=== PATIENT | female | born 2000 | race Caucasian/White ===

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

== ENCOUNTER 2020-03-09 14:46 | Emergency (ER) | payer BC, OTHER ==
[2020-03-09 16:08] LABS: Basophils # (A) 0.1 k/uL (0-0.2); Basophils % (A) 1 %; Eosinophils # (A) 0.3 k/uL (0-0.7); Eosinophils % (A) 7 %; HCT 47.8 % (34.0-46.0); HGB 16.5 gm/dL (11.4-16.0); Lymphocytes % (A) 24 %; MCH 31.7 pg (25.0-35.0); MCHC 34.5 g/dL (31.0-37.0); MCV 91.7 fL (80.0-100.0); Mean Platelet Volume 6.9; Monocytes # (A) 0.3 k/uL (0-1.0); Monocytes % (A) 6 %; Neutrophils # (A) 2.6 k/uL (1.3-7.7); Neutrophils % (A) 60 %; Platelet Count 247 k/uL (150-450); RBC 5.21 m/uL (3.80-5.40); RDW 11.9 % (11.5-15.5); WBC 4.3 k/uL (3.8-10.6)
[2020-03-09 16:13] LABS: ALT 9 U/L (4-34); AST 18 U/L (14-36); African American GFR (CKD) >90 (>60 ml/min/1.73 sqM); Albumin 4.5 g/dL (3.5-5.0); Alkaline Phosphatase 44 U/L (38-126); Anion Gap 6 mmol/L; Blood Urea Nitrogen 9 mg/dL (7-17); Calcium 9.6 mg/dL (8.4-10.2); Carbon Dioxide 28 mmol/L (22-30); Chloride 105 mmol/L (98-107); Glucose 85 mg/dL (74-99); Non-African American GFR(CKD) >90 (>60 ml/min/1.73 sqM); Potassium 4.1 mmol/L (3.5-5.1); Sodium 139 mmol/L (137-145); Total Bilirubin 0.8 mg/dL (0.2-1.3); Total Protein 7.3 g/dL (6.3-8.2)
--- NOTE | 2020-03-09 16:24 | XR ---
EXAMINATION TYPE: XR chest 2V DATE OF EXAM: 03/09/2020 CLINICAL HISTORY: chest tightness. TECHNIQUE: Frontal and lateral view of the chest. COMPARISON: 03/14/2017 chest radiograph FINDINGS: Left superior mediastinal surgical clips redemonstrated. Redemonstrated right aortic arch. The cardiomediastinal silhouette is within normal limits for size. Pulmonary vasculature is normal. There is no focal air space opacity, pleural effusion, or pneumothorax seen. The osseous structures a re intact. IMPRESSION: No acute cardiopulmonary process.
[2020-03-09 16:26] LABS: Appearance,Urine Cloudy (Clear); Bacteria,Urine Rare /hpf; Bilirubin,Urine Negative (Negative); Blood,Urine Negative (Negative); Color,Urine Yellow; Glucose,Urine (UA) Negative (Negative); Ketones,Urine 1+ (Negative); Leukocyte Esterase,Urine Negative (Negative); Mucus,Urine Many /hpf; Nitrite,Urine Negative (Negative); Protein,Urine Trace (Negative); RBC,Urine 2 /hpf (0-5); Specific Gravity,Urine 1.033 (1.001-1.035); Squamous Epithelial Cell,Urine 23 /hpf (0-4); Urobilinogen,Urine <2.0 mg/dL (<2.0); WBC,Urine 2 /hpf (0-5)
[2020-03-09 17:13] VITALS: RESP 16
--- NOTE | 2020-03-09 17:43 | ED ---
General Adult HPI - General Chief complaint: Chest Pain Stated complaint: chest pain Time Seen by Provider: 03/09/20 15:09 Source: patient, RN notes reviewed, old records reviewed Mode of arrival: wheelchair Limitations: no limitations - History of Present Illness Initial comments: 19-year-old female patient ED for evaluation. Patient has history of vascular ring surgery when she was 1.5 years old. Reports that for the last week or so she's been having left parasternal chest tightness and some waxing and waning sharp chest pain. Denies any difficulty breathing. Denies any other acute complaints. Systemic: Pt denies fatigue, fever/chills, rash. Pt denies weakness, night sweats, weight loss. Neuro: Pt denies headache, visual disturbances, syncope or pre-syncope. HEENT: Pt denies ocular discharge or irritation, otalgia, rhinorrhea, pharyngit is or notable lymphadenopathy. Cardiopulmonary: Pt denies SOB, heart palpitations, dyspnea on exertion. Abdominal/GI: Pt denies abdominal pain, n/v/d. : Pt denies dysuria, burning w/ urination, frequency/urgency. Denies new onset urinary or bowel incontinence. MSK: Pt denies myalgia, loss of strength or function in extremities. Neuro: Pt denies new onset weakness, paresthesias. - Related Data Home Medications Medication Instructions Recorded Confirmed Montelukast [Singulair] 10 mg PO DAILY 05/19/16 03/09/20 Amoxicillin 500 mg PO BID 03/09/20 03/09/20 Loratadine [Claritin] 10 mg PO DAILY 03/09/20 03/09/20 hydrOXYzine HCL [Atarax] 10 mg PO TID PRN 03/09/20 03/09/20 Allergies Allergy/AdvReac Type Severity Reaction Status Date / Time Egg Derived Allergy Nausea & Verified 03/09/20 19:12 Vomiting peanut Allergy Anaphylaxis Verified 03/09/20 19:12 shellfish derived [Shellfish] Allergy Unknown Verified 03/09/20 19:12 tree nut Allergy Anaphylaxis Verified 03/09/20 19:12 Review of Systems ROS Statement: Those systems with pertinent positive or pertinent negative responses have been documented in the HPI. ROS Other: All systems not noted in ROS Statement are negative. 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 HEENT: NC/AT, trachea midline, neck supple, no lymphadenopathy. Posterior pharynx non erythematous, without exudates. External ears appear normal, without discharge. Mucous membranes moist. Eyes PERRLA, EOM intact. There is no scleral icterus. No pallor noted. Cardiopulmonary: RRR, no murmurs, rubs or gallops, no JVD noted. Lungs CTAB in anterior and posterior olsen. No peripheral edema. Abdominal exam: Abdomen soft and non-distended. Abdomen non-tender to palpation in all 4 quadrants. Bowel sounds active in LLQ. No hepatosplenomegaly. No ecchymosis Neuro: CN II-XII grossly intact. No nuchal rigidity. No raccon eyes, no carr sign, no hemotympanum. No cervical spinal tenderness. MSK: No posterior calf tenderness bilaterally, homans sign negative bilaterally. Posterior tibialis and radial pulse +2 bilaterally. Sensation intact in upper and lower extremities. Full active ROM in upper and lower extremities, 5/5 stregnth. Limitations: no limitations Course Vital Signs 03/09/20 03/09/20 03/09/20 14:47 17:12 18:40 Temperature 97.3 F L 98.0 F Pulse Rate 129 H 81 89 Respiratory 18 16 16 Rate Blood Pressure 105/71 115/73 110/72 O2 Sat by Pulse 100 100 99 Oximetry Medical Decision Making - Medical Decision Making 19-year-old female patient ED for evaluation of chest pain. Patient was reportedly evaluated by urgent care as well as her primary care provider for this. Primary care provider check thyroid tests which were reportedly normal. Abdomen is ago she was here are non-impressive. EKG negative for acute ischemia. Chest x-ray negative for acute pathology. D-dimer is undetectable. Troponin is negative. Due to patient's history of vascular surgery CT angio graphy was obtained did not display any acute pathology. Patient in no acute discomfort. Believes her symptoms are anxiety related. Patient states discharge for follow-up with primary care provider outpatient basis and will return to ER if any worsening symptoms. Case discussed with Dr. Parham. - Lab Data Result diagrams: 03/09/20 15:30 03/09/20 15:30 Lab Results 03/09/20 03/09/20 03/09/20 Range/Units 15:30 15:30 15:30 WBC 4.3 (3.8-10.6) k/uL RBC 5.21 (3.80-5.40) m/uL Hgb 16.5 H (11.4-16.0) gm/dL Hct 47.8 H (34.0-46.0) % MCV 91.7 (80.0-100.0) fL MCH 31.7 (25.0-35.0) pg MCHC 34.5 (31.0-37.0) g/dL RDW 11.9 (11.5-15.5) % Plt Count 247 (150-450) k/uL Neutrophils % 60 % Lymphocytes % 24 % Monocytes % 6 % Eosinophils % 7 % Basophils % 1 % Neutrophils # 2.6 (1.3-7.7) k/uL Lymphocytes # 1.0 (1.0-4.8) k/uL Monocytes # 0.3 (0-1.0) k/uL Eosinophils # 0.3 (0-0.7) k/uL Basophils # 0.1 (0-0.2) k/uL D-Dimer (<0.60) mg/L FEU Sodium (137-145) mmol/L Potassium (3.5-5.1) mmol/L Chloride (98-107) mmol/L Carbon Dioxide (22-30) mmol/L Anion Gap mmol/L BUN (7-17) mg/dL Creatinine (0.52-1.04) mg/dL Est GFR (CKD-EPI)AfAm (>60 ml/min/1.73 sqM) Est GFR (CKD-EPI)NonAf (>60 ml/min/1.73 sqM) Glucose (74-99) mg/dL Calcium (8.4-10.2) mg/dL Total Bilirubin (0.2-1.3) mg/dL AST (14-36) U/L ALT (4-34) U/L Alkaline Phosphatase (38-126) U/L Troponin I (0.000-0.034) ng/mL Total Protein (6.3-8.2) g/dL Albumin (3.5-5.0) g/dL Urine Color Yellow Urine Appearance Cloudy H (Clear) Urine pH 6.0 (5.0-8.0) Ur Specific [place] 1.033 (1.001-1.035) Urine Protein Trace H (Negative) Urine Glucose (UA) Negative (Negative) Urine Ketones 1+ H (Negative) Urine Blood Negative (Negative) Urine Nitrite Negative (Negative) Urine Bilirubin Negative (Negative) Urine Urobilinogen <2.0 (<2.0) mg/dL Ur Leukocyte Esterase Negative (Negative) Urine RBC 2 (0-5) /hpf Urine WBC 2 (0-5) /hpf Ur Squamous Epith Cells 23 H (0-4) /hpf Urine Bacteria Rare H (None) /hpf Urine Mucus Many H (None) /hpf Urine HCG, Qual Not Detected (Not Detectd) 03/09/20 03/09/20 03/09/20 Range/Units 15:30 15:30 15:30 WBC (3.8-10.6) k/uL RBC (3.80-5.40) m/uL Hgb (11.4-16.0) gm/dL Hct (34.0-46.0) % MCV (80.0-100.0) fL MCH (25.0-35.0) pg MCHC (31.0-37.0) g/dL RDW (11.5-15.5) % Plt Count (150-450) k/uL Neutrophils % % Lymphocytes % % Monocytes % % Eosinophils % % Basophils % % Neutrophils # (1.3-7.7) k/uL Lymphocytes # (1.0-4.8) k/uL Monocytes # (0-1.0) k/uL Eosinophils # (0-0.7) k/uL Basophils # (0-0.2) k/uL D-Dimer <0.17 (<0.60) mg/L FEU Sodium 139 (137-145) mmol/L Potassium 4.1 (3.5-5.1) mmol/L Chloride 105 (98-107) mmol/L Carbon Dioxide 28 (22-30) mmol/L Anion Gap 6 mmol/L BUN 9 (7-17) mg/dL Creatinine 0.74 (0.52-1.04) mg/dL Est GFR (CKD-EPI)AfAm >90 (>60 ml/min/1.73 sqM) Est GFR (CKD-EPI)NonAf >90 (>60 ml/min/1.73 sqM) Glucose 85 (74-99) mg/dL Calcium 9.6 (8.4-10.2) mg/dL Total Bilirubin 0.8 (0.2-1.3) mg/dL AST 18 (14-36) U/L ALT 9 (4-34) U/L Alkaline Phosphatase 44 (38-126) U/L Troponin I <0.012 (0.000-0.034) ng/mL Total Protein 7.3 (6.3-8.2) g/dL Albumin 4.5 (3.5-5.0) g/dL Urine Color Urine Appearance (Clear) Urine pH (5.0-8.0) Ur Specific [place] (1.001-1.035) Urine Protein (Negative) Urine Glucose (UA) (Negative) Urine Ketones (Negative) Urine Blood (Negative) Urine Nitrite (Negative) Urine Bilirubin (Negative) Urine Urobilinogen (<2.0) mg/dL Ur Leukocyte Esterase (Negative) Urine RBC (0-5) /hpf Urine WBC (0-5) /hpf Ur Squamous Epith Cells (0-4) /hpf Urine Bacteria (None) /hpf Urine Mucus (None) /hpf Urine HCG, Qual (Not Detectd) Disposition Clinical Impression: Chest wall pain Disposition: HOME SELF-CARE Condition: Stable Instructions (If sedation given, give patient instructions): Chest Pain (ED), Anxiety (ED) Additional Instructions: Follow up with PCP tomorrow. Return to ED with any worsening symptoms. Is patient prescribed a controlled substance at d/c from ED?: No Referrals: Misti Pollard MD [Primary Care Provider] - 1-2 days
[2020-03-09 18:41] VITALS: BP 110/72; PULSE 89; TEMP 98
--- NOTE | 2020-03-09 18:58 | CT ---
EXAMINATION TYPE: CT angio chest DATE OF EXAM: 03/09/2020 COMPARISON: None HISTORY: Chest pain, weakness. CT DLP: 465.2 mGycm Automated exposure control for dose reduction was used. CONTRAST: Performed without and with IV Contrast, patient injected with 100 mL of Isovue 370. There are 3-D post processed images. The lungs are clear of infiltrate. There is no evidence of a pulmonary mass. There is no pleural effu rocky. There is no pericardial effusion. Heart size is normal. There is no pneumothorax. There is right side aortic arch. There is no mediastinal adenopathy. There are no hilar masses. There is normal contrast opacification of the pulmonary arteries. There are no filling defects. The b jah thorax appears intact. Sternum is intact. The ribs appear intact. Upper abdominal soft tissues ar e intact. There is no evidence of thoracic aortic aneurysm or dissection. impression No evidence of pulmonary embolism. Right side aortic arch. No evidence of aneurysm or dissection.
[2020-03-09] MEDS ORDERED: SODIUM CHLORIDE 0.9% 500 ML 500 ML IV ONE (19:04)
== END 2020-03-09 19:32 | disposition home or self-care (01) ==
LOC: EC 14:46
DX: R07.89 Other chest pain (principal); I49.8 Other specified cardiac arrhythmias; J45.909 Unspecified asthma, uncomplicated; Z79.899 Other long term (current) drug therapy; Z91.012 Allergy to eggs; Z91.010 Allergy to peanuts; Z91.013 Allergy to seafood; Z91.018 Allergy to other foods
CPT/HCPCS: 36415; 93005; 85379; 80053; 84484; 85025; 81001; 81025; 71046; 71275; 99285; Q9967

== ENCOUNTER → 2020-03-27 | Outpatient (CLI) | payer OTHER ==
--- NOTE | 2020-03-28 16:38 | CT ---
EXAMINATION TYPE: CT sinus wo con DATE OF EXAM: 03/27/2020 COMPARISON: None HISTORY: chronic sinus congestion CT DLP: 619 mGycm. Automated Exposure Control for Dose Reduction was Utilized. TECHNIQUE: CT scan of the sinuses is performed without contrast, axial images are obtained, coronal r eformatted images are also reviewed. FINDINGS: The paranasal sinuses including the frontal, ethmoid, sphenoid, and maxillary sinuses bila terally are well-aerated without abnormal opacification. The ostiomeatal complex is patent bilateral ly on the coronal images. Visualized portion of mastoid air cells show no abnormal opacification. The globes are intact bilate rally. IMPRESSION: The sinuses are clear and the ostiomeatal complex is patent bilaterally.
== END | disposition home or self-care (01) ==
LOC: RADCTMAIN 18:31
PROVIDERS: ATTEND Otolaryngology
DX: J32.9 Chronic sinusitis, unspecified (principal)
CPT/HCPCS: 70486

== ENCOUNTER 2020-07-29 16:32 | Emergency (ER) | payer OTHER ==
[2020-07-29 16:51] VITALS: BP 110/69; PULSE 85; RESP 18; TEMP 98.1
--- NOTE | 2020-07-29 17:42 | XR ---
EXAMINATION TYPE: XR chest 2V DATE OF EXAM: 07/29/2020 COMPARISON: 03/09/2020 HISTORY: Weakness TECHNIQUE: 2 views FINDINGS: Heart size is normal. There is right side aortic arch. There are no hilar masses. There is no evidence of adenopathy. Costophrenic angles are clear. The bony thorax is intact. IMPRESSION: No cardiopulmonary disease. No change.
--- NOTE | 2020-07-29 18:41 | ED ---
URI HPI - General Chief Complaint: Upper Respiratory Infection Stated Complaint: Chest tightness,ear ache Time Seen by Provider: 07/29/20 17:26 Source: patient Mode of arrival: ambulatory Limitations: no limitations - History of Present Illness Initial Comments: 19-year-old female patient presents to the emergency department today for evaluation of tightness across the upper part of her chest. States symptoms started 3 days ago. States she has had a very intermittent cough. Is reporting nasal congestion and left ear pressure. Denies any fever or chills. Denies any shortness of breath. Denies dizziness or weakness. States that she did work out a couple of days ago and it didn't seem to improve her symptoms. Patient denies any recent rash, abdominal pain, nausea, vomiting, diarrhea, constipation, back pain, numbness, tingling, dizziness, weakness, hematuria, dysuria, urinary urgency, urinary frequency, headache, visual changes, or any ot her complaints. Denies chance of . - Related Data Home Medications Medication Instructions Recorded Confirmed Montelukast [Singulair] 10 mg PO HS 05/19/16 07/29/20 Loratadine [Claritin] 10 mg PO HS 03/09/20 07/29/20 Albuterol Sulfate [Proair Hfa] 2 puff INHALATION RT-Q6H PRN 07/29/20 07/29/20 Fluticasone Nasal [place] [Flonase 1 spray EA NOSTRIL HS 07/29/20 07/29/20 Nasal [place]] Allergies Allergy/AdvReac Type Severity Reaction Status Date / Time Egg Derived Allergy Nausea & Verified 07/29/20 19:05 Vomiting peanut Allergy Anaphylaxis Verified 07/29/20 19:05 shellfish derived [Shellfish] Allergy Unknown Verified 07/29/20 19:05 tree nut Allergy Anaphylaxis Verified 07/29/20 19:05 Review of Systems ROS Statement: Those systems with pertinent positive or pertinent negative responses have been documented in the HPI. ROS Other: All systems not noted in ROS Statement are negative. Past Medical History Past Medical History: Asthma History of Any Multi-Drug Resistant Organisms: None Reported Past Surgical History: No Surgical Hx Reported Additional Past Surgical History / Comment(s): r aortic arch surg as an infant, vasicular ring, Past Psychological History: No Psychological Hx Reported Smoking Status: Never smoker Past Alcohol Use History: None Reported Past Drug Use History: Marijuana General Exam Limitations: no limitations General appearance: alert, in no apparent distress, other (Physical well- developed, well-nourished adult female patient in no acute distress. Vital signs upon presentation are temperature 98.1F, pulse 85, respirations 18, blood pressure 110/69, pulse ox 100% on room air.) Eye exam: Present: normal appearance, PERRL, EOMI. Absent: scleral icterus, conjunctival injection, periorbital swelling ENT exam: Present: normal exam, normal oropharynx, mucous membranes moist Respiratory exam: Present: normal lung sounds bilaterally. Absent: respiratory distress, wheezes, rales, rhonchi, stridor Cardiovascular Exam: Present: regular rate, normal rhythm, normal heart sounds. Absent: systolic murmur, diastolic murmur, rubs, gallop, clicks GI/Abdominal exam: Present: soft, normal bowel sounds. Absent: distended, tenderness, guarding, rebound, rigid Neurological exam: Present: alert, oriented X3, CN II-XII intact Psychiatric exam: Present: normal affect, normal mood Skin exam: Present: warm, dry, intact, normal color. Absent: rash Course Vital Signs 07/29/20 16:47 Temperature 98.1 F Pulse Rate 85 Respiratory 18 Rate Blood Pressure 110/69 O2 Sat by Pulse 100 Oximetry Medical Decision Making - Medical Decision Making 19-year-old female patient presented to the emergency department today for evaluation of upper chest tightness. Physical examination was unremarkable. Lungs are clear to auscultation with good air movement. EKG was unremarkable. Chest x-ray is negative. HCG is negative. She did test negative for COVID-19. She does have nasal congestion and intermittent cough this could be related to early viral upper respiratory illness. She is instructed to follow-up with her primary care physician for recheck in 1-2 days. Return parameters were discussed in detail. She verbalizes understanding and agrees with this plan. Case discussed with my attending Dr. Marcano. - Lab Data Lab Results 07/29/20 07/29/20 Range/Units 17:57 17:57 Urine HCG, Qual Not Detected (Not Detectd) Coronavirus (PCR) Not Detected (Not Detectd) - EKG Data -: EKG Interpreted by Me EKG Comments: EKG obtained at 1737 shows normal sinus rhythm with a sinus arrhythmia, ventricular rate is 67, [place] interval 126, QRS duration 82, QT 408, QTC 431. No evidence of ST elevation or depression. - Radiology Data Radiology results: report reviewed, image reviewed Two-view x-ray of the chest was obtained. Report was reviewed in its entirety. Impression by Dr. Hernandes shows no cardiopulmonary disease. No change. Disposition Clinical Impression: Viral syndrome Disposition: HOME SELF-CARE Condition: Good Instructions (If sedation given, give patient instructions): Viral Syndrome (ED) Additional Instructions: Follow-up with her primary care physician for recheck in 1-2 days. Return to the emergency department for any new, worsening, or concerning symptoms. Is patient prescribed a controlled substance at d/c from ED?: No Referrals: Misti Pollard MD [Primary Care Provider] - 1-2 days Time of Disposition: 19:03
== END 2020-07-29 19:30 | disposition home or self-care (01) ==
LOC: EC 16:32
DX: B34.9 Viral infection, unspecified (principal); R07.89 Other chest pain; J45.909 Unspecified asthma, uncomplicated; F12.90 Cannabis use, unspecified, uncomplicated
CPT/HCPCS: 71046; 81025; 87635; 93005; 99285